=== PATIENT | female | born 1975 | race Caucasian/White ===

== ENCOUNTER 2020-08-24 08:09 | Emergency (ER) | payer OTHER ==
[~2020-08-24] VITALS: Ht 154.9 cm; Wt 85.3 kg
[~2020-08-24 08:09] MED LIST: ALLEGRA30 MG; ASPIR-LOW81 MG PO; FIORICET TABLET1 TAB; KETO10TA2 PO; NORFLEX100MG PO; PERCOCET 5/3251 TAB PO; VITAMIN B-1250 MC1 PO; ZOCOR20 MG PO; [UNRECOGNIZED DRUG - OTHER]
[2020-08-24] MEDS ORDERED: VITAMIN D (08:27)
== END 2020-08-24 16:10 | disposition home or self-care (01) ==
LOC: ER 08:09
DX: K29.60 Other gastritis without bleeding (principal); R10.13 Epigastric pain

== ENCOUNTER 2024-06-03 09:16 | Emergency (ER) | payer OTHER ==
[~2024-06-03] VITALS: Ht 154.9 cm; Wt 82.6 kg
[~2024-06-03 09:16] MED LIST changes: +LEVSIN/SL0.125 MG SL; +PAIN RELIEVER500 M2 PO; +PANTOPRAZOLE SO40 MG PO; +SIMVASTATIN20 MG PO; +VITAMIN D
[2024-06-03] MEDS ORDERED: VITAMIN E400 UNI7 (09:41)
== END 2024-06-03 10:29 | disposition home or self-care (01) ==
LOC: ER 09:18
DX: S90.31XA Contusion of right foot, initial encounter (principal); X58.XXXA Exposure to other specified factors, initial encounter; Y93.89 Activity, other specified; Y92.89 Other specified places as the place of occurrence of the external cause; Y99.9 Unspecified external cause status; Z88.8 Allergy status to other drugs, medicaments and biological substances